=== PATIENT | male | born 1960 | race Caucasian/White ===

== ENCOUNTER 2018-02-22 15:12 | Outpatient (CLI) | payer MEDICARE ==
--- NOTE | 2018-02-22 22:24 | RAD ---
SACRUM AND COCCYX 02/22/18 The arcuate lines of the sacrum appear intact. There is some slight asymmetry in how the patient is p ositioned and allowing for this the SI joints are probably symmetrical. It is difficult to assess the left SI joint well, however. On the lateral view the tip of the coccyx is slightly displaced posteri gladis. This suggests an injury to this location has occurred. The visible portions of the lower lumbar spine showed no acute change. IMPRESSION: Mild posterior displacement of the coccyx, presumably due to trauma. Code T POS: HOME
== END 2018-02-22 15:13 | disposition home or self-care (01) ==
LOC: BURRAD 15:12
PROVIDERS: ATTEND Physician Assistant
DX: M53.3 Sacrococcygeal disorders, not elsewhere classified (principal); S33.2XXA Dislocation of sacroiliac and sacrococcygeal joint, initial encounter
CPT/HCPCS: 72220

== ENCOUNTER 2019-04-25 00:32 | Inpatient (IN) | payer MEDICARE ==
[2019-04-25] MEDS ORDERED: Bisacodyl 5 MG TAB PO PRN (08:40)
[2019-04-25] MEDS ORDERED: Senokot S 8.6-50 MG TAB PO PRN (08:40)
[2019-04-25] MEDS ORDERED: FLU VACC QS2019-20(6MOS UP)/PF 60 MCG/0.5 ML SYRINGE IM ONE (09:00)
[2019-04-25] MEDS ORDERED: Ciprofloxacin 500 MG TAB PO SCH (09:15)
[2019-04-25] MEDS: Lisinopril 10 MG TAB PO SCH (09:22)
[2019-04-25] MEDS: Famotidine 20 MG TAB PO SCH ×2 (09:22→20:43)
[2019-04-25] MEDS: Enoxaparin Sodium 40 MG/0.4 ML SYRINGE SC SCH (09:22)
[2019-04-25] MEDS: Acetaminophen 325 MG TAB PO PRN (13:57)
[2019-04-25] MEDS: Ciprofloxacin 500 MG TAB PO SCH (20:43)
[2019-04-26] MEDS: Ciprofloxacin 500 MG TAB PO SCH ×2 (05:34→20:10)
[2019-04-26] MEDS: Enoxaparin Sodium 40 MG/0.4 ML SYRINGE SC SCH (08:33)
[2019-04-26] MEDS: Famotidine 20 MG TAB PO SCH ×2 (08:34→20:10)
[2019-04-26] MEDS: Acetaminophen 325 MG TAB PO PRN (08:45)
[2019-04-26] MEDS: Nystatin Powder 15 GM BOT TOP SCH ×2 (10:41→20:10)
[2019-04-26] MEDS: Lisinopril 10 MG TAB PO SCH (10:44)
[2019-04-27] MEDS: Ciprofloxacin 500 MG TAB PO SCH ×2 (06:47→21:29)
[2019-04-27] MEDS: Lisinopril 10 MG TAB PO SCH (08:30)
[2019-04-27] MEDS: Famotidine 20 MG TAB PO SCH ×2 (08:30→21:29)
[2019-04-27] MEDS: Enoxaparin Sodium 40 MG/0.4 ML SYRINGE SC SCH (08:31)
[2019-04-27] MEDS: Nystatin Powder 15 GM BOT TOP SCH ×2 (08:31→21:29)
[2019-04-27] MEDS: Nicotine 21 MG PATCH TD SCH (08:32)
[2019-04-27] MEDS: Ibuprofen 600 MG TAB PO PRN (17:05)
[2019-04-27] MEDS: Acetaminophen 325 MG TAB PO PRN (21:30)
[2019-04-28] MEDS: Ciprofloxacin 500 MG TAB PO SCH ×2 (05:40→20:30)
[2019-04-28 05:47] VITALS: BMI 67.0
[2019-04-28] MEDS: Nystatin Powder 15 GM BOT TOP SCH ×2 (08:40→20:33)
[2019-04-28] MEDS: Famotidine 20 MG TAB PO SCH ×2 (08:45→20:30)
[2019-04-28] MEDS: Lisinopril 10 MG TAB PO SCH (08:45)
[2019-04-28] MEDS: Enoxaparin Sodium 40 MG/0.4 ML SYRINGE SC SCH (08:46)
[2019-04-28] MEDS: Nicotine 21 MG PATCH TD SCH (08:46)
[2019-04-28] MEDS: Ibuprofen 600 MG TAB PO PRN (20:30)
[2019-04-29] MEDS: Nicotine 21 MG PATCH TD SCH (08:29)
[2019-04-29] MEDS: Enoxaparin Sodium 40 MG/0.4 ML SYRINGE SC SCH (08:29)
[2019-04-29] MEDS: Lisinopril 10 MG TAB PO SCH (08:30)
[2019-04-29] MEDS: Famotidine 20 MG TAB PO SCH ×2 (08:31→20:12)
[2019-04-29] MEDS: Nystatin Powder 15 GM BOT TOP SCH ×2 (08:31→20:12)
[2019-04-29 19:08] VITALS: TEMP 98.8
[2019-04-30 05:39] VITALS: BP 117/60
[2019-04-30] MEDS: Nicotine 21 MG PATCH TD SCH (08:36)
[2019-04-30] MEDS: Enoxaparin Sodium 40 MG/0.4 ML SYRINGE SC SCH (08:36)
[2019-04-30] MEDS: Famotidine 20 MG TAB PO SCH (08:38)
[2019-04-30] MEDS: Lisinopril 10 MG TAB PO SCH (08:38)
[2019-04-30] MEDS: Nystatin Powder 15 GM BOT TOP SCH (10:37)
== END 2019-04-30 13:30 | disposition home health service (06) | DRG 690 ==
LOC: BURMED 00:32
PROVIDERS: ADMIT Family Medicine; ATTEND Family Medicine
DX: N39.0 Urinary tract infection, site not specified (principal); Z68.44 Body mass index [BMI] 60.0-69.9, adult; E66.2 Morbid (severe) obesity with alveolar hypoventilation; I10 Essential (primary) hypertension; F15.10 Other stimulant abuse, uncomplicated; D64.9 Anemia, unspecified; I89.0 Lymphedema, not elsewhere classified; Z87.891 Personal history of nicotine dependence
CPT/HCPCS: J1650; J7620

== ENCOUNTER 2020-04-17 16:58 | Emergency (ER) | payer MEDICARE, MEDICAID ==
[2020-04-17] MEDS ORDERED: Lidocaine 1% w/Epinephrine 1:100K 20 ML VIAL ONE (17:11)
== END 2020-04-17 17:29 | disposition home or self-care (01) ==
LOC: BURERS 16:58
DX: L02.11 Cutaneous abscess of neck (principal); I10 Essential (primary) hypertension; D64.9 Anemia, unspecified; Z85.038 Personal history of other malignant neoplasm of large intestine; Z87.891 Personal history of nicotine dependence; Z79.899 Other long term (current) drug therapy
CPT/HCPCS: 10060

== ENCOUNTER 2020-04-18 14:51 | Emergency (ER) | payer MEDICARE, MEDICAID | END 2020-04-18 15:12 | disposition home or self-care (01) | LOC: BURERS 14:51 | DX: Z48.817 Encounter for surgical aftercare following surgery on the skin and subcutaneous tissue (principal); Z79.899 Other long term (current) drug therapy; I10 Essential (primary) hypertension; D64.9 Anemia, unspecified; Z87.891 Personal history of nicotine dependence | CPT/HCPCS: 99282 ==

== ENCOUNTER 2023-10-26 16:36 | Emergency (ER) | payer OTHER, MEDICAID ==
[2023-10-26 17:38] LABS: Hematocrit 36.1 % (42.0-52.0); Hemoglobin 12.2 g/dL (14.0-18.0); Mean Corpuscular HGB CONC 33.7 g/dL (32.0-36.0); Mean Corpuscular Hemoglobin 31.1 pg (27.0-31.0); Mean Corpuscular Volume 92.1 fl (78.0-98.0); Mean Platelet Volume 5.4 fL (7.4-10.4); Platelet Count 199 10x3/uL (130-400); RBC Distribution Width 13.3 % (11.5-14.5); Red Blood Cell (RBC) Count 3.92 mill/uL (4.70-6.10); White Blood Cell (WBC) Count 9.5 10x3/uL (4.8-10.8)
[2023-10-26] MEDS ORDERED: Mag-Al 1200 mg/1200 mg/30 ML UDCUP ONE (17:38)
[2023-10-26] MEDS ORDERED: Lidocaine Viscous Sol 2% 15 ml UD Cup ONE (17:38)
[2023-10-26 17:53] LABS: ALT (SGPT) 13 U/L (8-55); AST (SGOT) 18 U/L (5-34); Albumin 3.3 g/dL (3.4-4.8); Alkaline Phosphatase 61 U/L (40-110); Anion Gap 17 mmol/L (10-20); BUN (Urea Nitrogen) 65 mg/dL (8.4-25.7); Bilirubin, Total 0.3 mg/dL (0.2-1.2); Calc. Creatinine Clearance 0 mL/min (70-130); Calcium 8.4 mg/dL (7.8-10.44); Carbon Dioxide 24 mmol/L (23-31); Chloride 102 mmol/L (98-107); Estimated GFR 39; Globulin 4.3 g/dL (2.4-3.5); Glucose 99 mg/dL (80-115); Potassium 5.7 mmol/L (3.5-5.1); Protein, Total 7.6 g/dL (5.8-8.1); Sodium 137 mmol/L (136-145)
[2023-10-26 17:54] LABS: Troponin I Less than 0.010 ng/mL (< 0.028)
[2023-10-26 18:02] LABS: Band 7 % (5-11); Eosinophils 1 % (0-10); Lymphocytes 10 % (21-51); MDiff Complete? YES; Monocytes 8 % (0-10); Neutrophil 73 % (42-75); Platelet Adequacy Comment Appears Adequate
[2023-10-26] MEDS ORDERED: traMADol HCl 50 MG TAB ONE (18:54)
[2023-10-26] MEDS ORDERED: Amoxicillin/Potassium Clav 875 MG TAB ONE (18:54)
[2023-10-26 20:06] LABS: Troponin I Less than 0.010 ng/mL (< 0.028)
== END 2023-10-26 20:25 | disposition home or self-care (01) ==
LOC: BURERS 16:36
DX: R07.2 Precordial pain (principal); K08.89 Other specified disorders of teeth and supporting structures; J96.10 Chronic respiratory failure, unspecified whether with hypoxia or hypercapnia; E66.01 Morbid (severe) obesity due to excess calories; I10 Essential (primary) hypertension; J44.9 Chronic obstructive pulmonary disease, unspecified; Z87.891 Personal history of nicotine dependence; Z79.899 Other long term (current) drug therapy
CPT/HCPCS: 36415; 71045; 80053; 83880; 84484; 85025; 93005